=== PATIENT | male | born 1995 | race Caucasian/White ===

== ENCOUNTER 2024-06-03 22:37 | Emergency (ER) | payer OTHER, MEDICAID ==
[~2024-06-03] VITALS: Ht 167.6 cm; Wt 59.0 kg
[2024-06-03 22:42] VITALS: O2SAT 99
[2024-06-03 23:40] VITALS: BP 129/91; PULSE 55; RESP 16; TEMP 36.7; O2SAT 100
[2024-06-03 23:53] LABS: CHLORIDE 103 mEq/L (98-107); POTASSIUM 3.5 mEq/L (3.5-5.1); SODIUM 140 mEq/L (136-145)
[2024-06-03 23:54] LABS: CARBON DIOXIDE 26 mEq/L (21-32)
[2024-06-03 23:55] LABS: CALCIUM 9.7 mg/dL (8.7-10.4)
[2024-06-03 23:58] LABS: BASOPHILS % 0.6 % (0.0-2.0); EOSINOPHILS % 0.6 % (0.0-5.0); HEMATOCRIT. 43.3 % (42.0-52.0); HEMOGLOBIN. 15.3 g/dL (14.0-18.0); LYMPHOCYTES % 33.2 % (20.0-50.0); MEAN CORPUSCULAR HEMOGLOBIN 32.4 pg (28.0-32.0); MEAN CORPUSCULAR HGB CONC 35.4 g/dL (31.0-37.0); MEAN CORPUSCULAR VOLUME 91.5 fL (80.0-94.0); MEAN PLATELET VOLUME 9.1 fl (7.4-10.4); MONOCYTES % 7.3 % (2.0-8.0); NEUTROPHILS % 58.3 % (40.0-76.0); PLATELET 207 x1000/uL (130-400); RED BLOOD CELL COUNT 4.73 mill/uL (4.7-6.1); RED CELL DISTRIBUTION WIDTH 12.2 % (11.6-14.6); WHITE BLOOD COUNT 5.6 x1000/uL (4.5-11.0)
[2024-06-03 23:59] LABS: CREATININE 0.9 mg/dL (0.6-1.3); GLUCOSE 91 mg/dL (70-105)
[2024-06-04] LABS: UREA NITROGEN BLOOD 13 mg/dL (9-23)
[2024-06-04 00:20] LABS: TROPONIN I HIGH SENSITIVITY 4 ng/L (3.0-53)
[2024-06-04 00:22] LABS: CREATINE KINASE 165 IU/L (46-171)
[2024-06-04 00:52] LABS: ETHANOL BLOOD < 10 mg/dL (<10)
[2024-06-04 02:14] LABS: TROPONIN I HIGH SENSITIVITY 4 ng/L (3.0-53)
[2024-06-04] MEDS ORDERED: IBUP-2028 MT (02:35)
== END 2024-06-04 03:06 | disposition home or self-care (01) ==
LOC: ER 22:37
DX: R53.83 Other fatigue (principal); R20.2 Paresthesia of skin; R06.02 Shortness of breath; Z88.1 Allergy status to other antibiotic agents
CPT/HCPCS: 36415; 71045; 80048; 80320; 82550; 83735; 84484; 85025; 85379; 93005; 99285; G0480